=== PATIENT | female | born 1980 | race Caucasian/White ===

== ENCOUNTER 2016-07-06 20:34 | Emergency (ER) | payer OTHER ==
[2016-07-06] MEDS ORDERED: NS 1,000 ML IV ONE ×2 (20:59→21:00)
[2016-07-06 21:22] LABS: ANION GAP 10 mEq/L (8-16); CALCIUM 8.9 mg/dL (8.5-10.4); CARBON DIOXIDE 23 mEq/l (22-31); CHLORIDE 109 mEq/L (97-110); CREATININE 0.7 mg/dL (0.6-1.0); GLOMERULAR FILTRATION RATE > 60; GLUCOSE 93 mg/dL (70-100); POTASSIUM 3.8 mEq/L (3.5-5.2); SODIUM 142 mEq/L (134-144)
[2016-07-06 22:08] VITALS: BP 110/74; PULSE 60; RESP 12; TEMP 98.1; O2SAT 97
--- NOTE | 2016-07-06 22:14 | EDPHY ---
H & P Stated Complaint: N/V/D since Thursday in a pt with Crohn's Time Seen by Provider: 07/06/16 20:56 HPI/ROS: CHIEF COMPLAINT: diarrhea HISTORY OF PRESENT ILLNESS: 35-year-old female presents to the emergency department requesting IV fluids. Patient has Crohn's disease, developed nausea and vomiting on Thursday and Thursday, has had diarrhea today nonstop. She thinks it may be from something she ate. Patient denies abdominal pain, no fevers. Patient reports her last colon resection was 5 years ago. She does not have a colostomy. Patient is not on any immunosuppressant since she had her child in the fall. She sees a data base design analyst at [facility]. Patient does not feel like this is a Crohn's flare. She feels this is from something that she ate on Thursday. She has been able to eat today without difficulty. Patient came in today requesting her electrolytes be checked. REVIEW OF SYSTEMS: A comprehensive 10 point review of systems is otherwise negative aside from elements mentioned in the history of present illness. Source: Patient Exam Limitations: No limitations - Personal History LMP (Females 10-55): IUD In Place Current Tetanus Diphtheria and Acellular Pertussis (TDAP): Yes Tetanus Vaccine Date: 12/2014 - Medical/Surgical History Hx Asthma: No Hx Chronic Respiratory Disease: No Hx Diabetes: No Hx Cardiac Disease: No Hx Renal Disease: No Hx Cirrhosis: No Hx Alcoholism: No Hx HIV/AIDS: No Hx Splenectomy or Spleen Trauma: No Other PMH: crohn's. 25% of intestine left after 2 resections. cholecystectomy. kidney stones. chronic iron deffinciancy - Family History Significant Family History: No pertinent family hx - Social History Smoking Status: Never smoked - Physical Exam Exam: Physical Exam Gen: Alert and Oriented, NAD HEENT: PERRL, moist mucous membranes NECK: no meningismus CV: regular rate and regular rhythm PULM: CTAB, no wheezes ABDOMEN: soft, non tender to palpation, BS present BACK: No CVA tenderness NEURO: Neurologically grossly intact EXTREMITIES: normal appearing SKIN: no rash or break in skin on exposed skin PSYCH: answers questions appropriately. Constitutional: Initial Vital Signs Temperature (C) 36.5 C 07/06/16 20:41 Heart Rate 71 07/06/16 20:41 Respiratory Rate 16 07/06/16 20:41 Blood Pressure 119/79 07/06/16 20:41 O2 Sat (%) 98 07/06/16 20:41 O2 Delivery Mode Room Air Allergies/Adverse Reactions: cefazolin sodium [From [facility]] Allergy (Severe, Verified 07/06/16 20:46) Swelling/neck,face,throat Home Medications: Medication Instructions Recorded Cyanocobalamin [Vitamin B12 1,000 mcg IM .MONTHLY 06/15/12 1000MCG/ML (*)] ESCITALOPRAM OXALATE [LEXAPRO] 20 mg PO DAILY 09/21/12 Ibuprofen [Motrin (*)] 600 mg PO Q6 PRN #60 tab 03/24/15 LORAZEPAM 07/12/15 Medical Decision Making ED Course/Re-evaluation: 35-year-old female with history of Crohn's presents with diarrhea requesting that we check her electrolytes. Patient had 2 days of nausea and vomiting and has had diarrhea for the last 2 days. No fevers or abdominal pain. Patient thinks she ate something bad. IV established, chemistry panel shows normal electrolytes. Patient is given 2 L of normal saline. She is declining stool studies. She is requesting to be discharged home after these 2 L. Patient agrees to return for worsening symptoms , abdominal pain, fevers. She is not currently taking any immunosuppressants for her Crohn's. Differential Diagnosis: The differential diagnosis for the patient's nausea and vomiting included but was not limited to gastroenteritis, gastritis, appendicitis, and medication side effect. - Data Points Laboratory Results: Laboratory Results 07/06/16 20:56 07/06/16 20:56 Sodium 142 mEq/L (134-144) Potassium 3.8 mEq/L (3.5-5.2) Chloride 109 mEq/L (97-110) Carbon Dioxide 23 mEq/l (22-31) Anion Gap 10 mEq/L (8-16) BUN 11 mg/dL (7-23) Creatinine 0.7 mg/dL (0.6-1.0) Estimated GFR > 60 Glucose 93 mg/dL (70-100) Calcium 8.9 mg/dL (8.5-10.4) Beta HCG, Qual NEGATIVE Medications Given: Discontinued Medications Sodium Chloride (Ns) 1,000 mls @ 0 mls/hr IV ONCE ONE PRN Reason: Wide Open Stop: 07/06/16 21:00 Last Admin: 07/06/16 21:02 Dose: 1,000 mls Sodium Chloride (Ns) 1,000 mls @ 0 mls/hr IV ONCE ONE PRN Reason: Wide Open Stop: 07/06/16 21:01 Last Admin: 07/06/16 21:28 Dose: 1,000 mls Departure - Departure Disposition: Home, Routine, Self-Care Clinical Impression: Diarrhea in adult patient Condition: Good Instructions: Acute Diarrhea (ED) Additional Instructions: Stay hydrated, return to the emergency department for any abdominal pain, fevers , symptoms that are not improving, any other questions or concerns. Referrals: Corazon Michael MD [Primary Care Provider] - As per Instructions
== END 2016-07-06 22:23 | disposition home or self-care (01) ==
DX: R19.7 Diarrhea, unspecified (principal)

== ENCOUNTER → 2016-09-10 | Outpatient (CLI) | payer OTHER | LOC: FIMAGING 13:43 | PROVIDERS: ATTEND Internal Medicine | DX: Z30.431 Encounter for routine checking of intrauterine contraceptive device (principal); R10.2 Pelvic and perineal pain; Z98.891 History of uterine scar from previous surgery ==

== ENCOUNTER 2018-06-18 11:41 | Emergency (ER) | payer BC, OTHER ==
--- NOTE | 2018-06-18 11:52 | EDPHY ---
H & P Time Seen by Provider: 06/18/18 11:51 HPI/ROS: CHIEF COMPLAINT: Central chest pain HISTORY OF PRESENT ILLNESS: Patient developed symptoms 20 hr before arriving here. She describes it as central chest discomfort 4/10 just to the right of her sternum and her central sternal area. It is a little bit better she older breath and is not exertional. No nausea vomiting diaphoresis or cough or shortness of breath. She took a lorazepam last night and Zantac and Tums this morning without relief. She contacted her primary care physician who based on her past medical history and extensive recent travel recommended she go to the emergency department to be evaluated for PE. REVIEW OF SYSTEMS: Eye: no change in vision ENT: no sore throat Cardiac: HPI Pulmonary: no cough or SOB Abdomen: Has chronic increased bowel movements and mild dehydration from previous surgeries on her Crohn's disease, unchanged Musculoskeletal: No leg swelling Skin: no rash Neuro: no headache Constitutional: no fever : no urinary symptoms A comprehensive 10 point review of systems is otherwise negative aside from elements mentioned in the history of present illness. PAST MEDICAL HISTORY: Includes Crohn's disease with previous intestinal resection, cholecystectomy, renal colic and kidney stones. Social history: Frequent airline travel General Appearance: Alert and conversant, cooperative. Eyes: No scleral icterus. ENT, Mouth: Normal mucous membranes. Respiratory: Normal respiratory effort, breath sounds equal, lungs are clear to auscultation. Very mild sternal and just right of the sternum tenderness to palpation. Cardiovascular: Regular rate and rhythm. Gastrointestinal: Abdomen is soft and non tender. No rebound or guarding and not distended and normal bowel sounds. Neurological: Alert, face symmetric, normal motor and sensory in extremities. Skin: Warm and dry, no rashes. Musculoskeletal: No peripheral edema. No calf tenderness. Psychiatric: Not agitated. Emergency Department course/MDM: Plan for EKG and D-dimer. Low pretest probability for pulmonary embolism. 1255: Labs discussed, D-dimer negative, stable for discharge. Smoking Status: Never smoked Constitutional: Initial Vital Signs Temperature (C) 36.4 C 06/18/18 11:47 Heart Rate 79 06/18/18 11:47 Respiratory Rate 18 06/18/18 11:47 Blood Pressure 111/78 06/18/18 11:47 O2 Sat (%) 99 06/18/18 11:47 O2 Delivery Mode Room Air Allergies/Adverse Reactions: cefazolin sodium [From [facility]] Allergy (Severe, Verified 06/18/18 11:47) Swelling/neck,face,throat Home Medications: Medication Instructions Recorded Cyanocobalamin [Vitamin B12 1,000 mcg IM .MONTHLY 06/15/12 1000MCG/ML (*)] ESCITALOPRAM OXALATE [LEXAPRO] 20 mg PO DAILY 09/21/12 Ibuprofen [Motrin (*)] 600 mg PO Q6 PRN #60 tab 03/24/15 LORAZEPAM 07/12/15 Medical Decision Making - Diagnostics EKG Interpretation: 12-lead EKG interpreted by me; official reading is in computer system. My interpretation is sinus rhythm, no ischemic changes rate 73. Differential Diagnosis: Differential diagnosis considered for chest pain including but not limited to myocardial ischemia, aortic dissection, pericarditis, pulmonary embolus, chest wall pain, pleural inflammation and pulmonary infectious causes. - Data Points Laboratory Results: Laboratory Results 06/18/18 12:15 06/18/18 12:15 06/18/18 06/18/18 06/18/18 12:15 12:15 12:15 WBC RBC Hgb Hct MCV MCH MCHC RDW Plt Count MPV Neut % (Auto) Lymph % (Auto) [place] % (Auto) Eos % (Auto) Baso % (Auto) Nucleat RBC Rel Count Absolute Neuts (auto) Absolute Lymphs (auto) Absolute Monos (auto) Absolute Eos (auto) Absolute Basos (auto) Absolute Nucleated RBC Immature Gran % Immature Gran # D-Dimer 0.38 ug/mLFEU ug/mLFEU (0.00-0.50) Sodium 138 mEq/L mEq/L (135-145) Potassium 4.7 mEq/L mEq/L (3.5-5.2) Chloride 109 mEq/L mEq/L (97-110) Carbon Dioxide 21 mEq/l L mEq/l (22-31) Anion Gap 8 mEq/L mEq/L (6-14) BUN 21 mg/dL mg/dL (7-23) Creatinine 0.7 mg/dL mg/dL (0.6-1.0) Estimated GFR > 60 Glucose 92 mg/dL mg/dL (70-100) Calcium 8.8 mg/dL mg/dL (8.5-10.4) Beta HCG, Qual NEGATIVE 06/18/18 12:15 WBC 6.16 10^3/uL 10^3/uL (3.80-9.50) RBC 4.58 10^6/uL 10^6/uL (4.18-5.33) Hgb 13.0 g/dL g/dL (12.6-16.3) Hct 39.0 % % (38.0-47.0) MCV 85.2 fL fL (81.5-99.8) MCH 28.4 pg pg (27.9-34.1) MCHC 33.3 g/dL g/dL (32.4-36.7) RDW 13.5 % % (11.5-15.2) Plt Count 283 10^3/uL 10^3/uL (150-400) MPV 10.1 fL fL (8.7-11.7) Neut % (Auto) 67.8 % % (39.3-74.2) Lymph % (Auto) 21.1 % % (15.0-45.0) [place] % (Auto) 9.1 % % (4.5-13.0) Eos % (Auto) 1.5 % % (0.6-7.6) Baso % (Auto) 0.3 % % (0.3-1.7) Nucleat RBC Rel Count 0.0 % % (0.0-0.2) Absolute Neuts (auto) 4.18 10^3/uL 10^3/uL (1.70-6.50) Absolute Lymphs (auto) 1.30 10^3/uL 10^3/uL (1.00-3.00) Absolute Monos (auto) 0.56 10^3/uL 10^3/uL (0.30-0.80) Absolute Eos (auto) 0.09 10^3/uL 10^3/uL (0.03-0.40) Absolute Basos (auto) 0.02 10^3/uL 10^3/uL (0.02-0.10) Absolute Nucleated RBC 0.00 10^3/uL 10^3/uL (0-0.01) Immature Gran % 0.2 % % (0.0-1.1) Immature Gran # 0.01 10^3/uL 10^3/uL (0.00-0.10) D-Dimer Sodium Potassium Chloride Carbon Dioxide Anion Gap BUN Creatinine Estimated GFR Glucose Calcium Beta HCG, Qual Departure - Departure Clinical Impression: Chest pain Condition: Good Instructions: Chest Pain (ED) Additional Instructions: Normal EKG. D-dimer negative at 0.38 (<0.5). Referrals: Corazon Michael MD [Primary Care Provider] - As per Instructions
[2018-06-18 12:26] LABS: PLATELET COUNT 283 10^3/uL (150-400)
[2018-06-18 13:10] VITALS: BP 96/58
--- NOTE | 2018-06-18 13:33 | CPEKG ---
Test Reason : OPEN Blood Pressure : / mmHG Vent. Rate : 073 BPM Atrial Rate : 074 BPM P-R Int : 200 ms QRS Dur : 086 ms QT Int : 374 ms P-R-T Axes : 002 026 019 degrees QTc Int : 413 ms Sinus rhythm Low voltage, precordial leads Confirmed by Mateo Ha ([id number]) on 06/18/2018 1:33:01 PM Referred By: Mateo Ha Confirmed By:Mateo Ha
== END 2018-06-18 13:10 | disposition home or self-care (01) ==
DX: R07.89 Other chest pain (principal)

== ENCOUNTER → 2018-10-29 | Outpatient (CLI) | payer OTHER | LOC: BMCIMAGING 09:40 ==